=== PATIENT | female | born 1990 | race Caucasian/White ===

== ENCOUNTER 2020-02-18 01:29 | Emergency (ER) | payer SELFPAY ==
[2020-02-18 01:29] VITALS: BP 112/76; PULSE 106; RESP 18; O2SAT 97
--- NOTE | 2020-02-18 01:38 | W.ED.SEIZURE ---
Documented by User: CYDNEY Mcguire 02/18/20 17:31 HPI - Seizure General: Chief Complaint: Seizure Stated Complaint: SEIZURE Time Seen by Provider: 02/18/20 01:38 Source: patient Mode of arrival: ambulatory Limitations: no limitations History of Present Illness: HPI Narrative: Patient comes in today for complaints of seizure. Patient reports binge drinking for the last 4 days and using methamphetamines. Patient reports previous history of a seizure episodes when she stopped drinking before. Patient last drink was this morning. Patient was given Versed by EMS for concerns of seizure activity. Patient appears well. Patient appears in no pain. Review of Systems General: Reports: 10 or more systems reviewed and unremarkable except as noted in History and below Neuro: Reports: seizure-like activity PFSH ED PFSH: Social History Smoking and tobacco status: current every day smoker Physical Exam Const: COMMON NORMALS: no acute distress and patient oriented x3 GENERAL APPEARANCE: cooperative HENMT: COMMON NORMALS: normocephalic, TM's normal bilaterally and Normal external nose present HEAD & SCALP: normal to inspection and normocephalic NOSE: Normal external nose present TYMPANIC MEMBRANE: TM's normal bilaterally MOUTH: Normal oral and palatal mucosa present THROAT: posterior oropharynx normal Eye: GENERAL EYE: appearance normal, both eyes and all related structures Neck/C-Spine: COMMON NORMALS: full ROM Lymph: LYMPHATIC: no lymphadenopathy noted Chest: COMMONS NORMALS: normal inspection of the chest Resp: COMMON NORMALS: normal respiratory effort EFFORT & INSPECTION: Yes able to speak in complete sentences Cardio: COMMON NORMALS: regular rate and regular rhythm RATE: regular rate RHYTHM: regular rhythm GI: COMMON NORMALS: non-tender : COMMON NORMALS: Yes no CVA tenderness BLADDER/KIDNEY EXAM: Yes no CVA tenderness Back/Pelvis: COMMON NORMALS: no CVA tenderness and thoracic and lumbar spine normal to inspection Extremity: COMMON NORMALS: normal to inspection Neuro: COMMON NORMALS: patient oriented x3 and moves all extremities Psych: COMMON NORMALS: mental status grossly normal and cooperative Skin: NARRATIVE SKIN EXAM: Patient has 2 crusted lesions 1 to the dorsal left hand and one to the dorsal left foot. Areas appear as necrotic wound secondary to extravasation. Patient does admit to injecting methamphetamines at those sites. Patient did admit to using methamphetamines prior to the binge drinking of 4 days. Course Vital Signs: Vital signs: Vital Signs Temperature 98.0 F 05/13/20 01:40 Pulse Rate 103 H 02/18/20 03:29 Respiratory Rate 16 02/18/20 03:29 Blood Pressure 108/80 02/18/20 03:29 Pulse Oximetry 96 02/18/20 03:29 MDM - Seizure Lab Data: Labs: Lab Results 02/18/20 02/18/20 02/18/20 Range/Units 02:38 02:38 02:38 WBC (4.0-10.0) 10^3/ uL RBC (4.1-5.3) 10^6/u L Hgb (11.5-15.3) g/dL Hct (37.0-47.0) % MCV (81-99) fL MCH (28.0-34.0) pg MCHC (30.0-36.0) g/dL RDW (12.1-15.1) % Plt Count (130-400) 10^3/c mm MPV (7.4-10.4) fL Neut % (Auto) % Lymph % (Auto) % [place] % (Auto) % Eos % (Auto) % Baso % (Auto) % Neut # (Auto) (1.8-7.7) 10^3/u L Lymph # (Auto) (0.8-4.8) 10^3/u L [place] # (Auto) (0.2-0.9) 10^3/u L Eos # (Auto) (0.0-0.8) 10^3/u L Baso # (Auto) (0.0-0.1) 10^3/u L Nucleated RBC % (a uto) % Nucleated RBCs # /100WBC Sodium (136-145) mmol/L Potassium (3.5-5.1) mmol/L Chloride (98-107) mmol/L Carbon Dioxide (22-29) mmol/L Anion Gap (5-19) BUN (6-20) mg/dL Creatinine (0.5-0.9) mg/dL GFR Calculation (90-130) mL/min Glucose (65-115) mg/dL Calculated Osmolal ity (285-295) mOsm/k g Calcium (8.5-10.5) mg/dL Total Bilirubin (0.15-1.2) mg/dL AST (0-32) U/L ALT (0-33) U/L Alkaline Phosphata se (35-105) IU/L Total Protein (6.6-8.7) g/dL Albumin (3.5-5.2) g/dL Globulin (1.3-4.6) g/dL Urine Color Yellow (Yellow) Urine Appearance Sl hazy (CLEAR) Urine pH 7 (5-7) Ur Specific Gravit y 1.010 (1.005-1.030) Urine Protein Neg (Negative) Urine Glucose (UA) Norm (Normal) Urine Ketones Negative (Negative) Urine Blood 3+ H (Negative) Urine Nitrate Negative (Negative) Urine Bilirubin Neg (NEGATIVE) Urine Urobilinogen Norm (Negative) mg/dL Ur Leukocyte Talia ase Negative (Negative) Urine RBC 25-40 H (0-2) /hpf Urine WBC 0-4 H (0-5) /hpf Ur Squamous Epith Cells 0-4 H (0-5) Urine Bacteria 1+ H (NONE) Urine HCG, Qual Negative (Negative) Urine Opiates Scre en Negative (Negative) ng/mL Ur Barbiturates Sc reen Negative (Negative) ng/mL Ur Phencyclidine S crn Negative (Negative) ng/mL Ur Amphetamines Sc reen Positive H (Negative) ng/mL U Benzodiazepines Scrn Positive H (Negative) ng/mL Urine Cocaine Scre en Negative (Negative) ng/mL U Marijuana (THC) Screen Negative (Negative) ng/mL Ethyl Alcohol (0-10) mg/dL 02/18/20 02/18/20 Range/Units 03:00 03:00 WBC 7.9 (4.0-10.0) 10^3/ uL RBC 4.49 (4.1-5.3) 10^6/u L Hgb 13.1 (11.5-15.3) g/dL Hct 40.0 (37.0-47.0) % MCV 89.1 (81-99) fL MCH 29.2 (28.0-34.0) pg MCHC 32.8 (30.0-36.0) g/dL RDW 13.2 (12.1-15.1) % Plt Count 329 (130-400) 10^3/c mm MPV 9.8 (7.4-10.4) fL Neut % (Auto) 53.7 % Lymph % (Auto) 36.2 % Stonewall % (Auto) 5.3 % Eos % (Auto) 3.9 % Baso % (Auto) 0.4 % Neut # (Auto) 4.3 (1.8-7.7) 10^3/u L Lymph # (Auto) 2.9 (0.8-4.8) 10^3/u L [place] # (Auto) 0.4 (0.2-0.9) 10^3/u L Eos # (Auto) 0.3 (0.0-0.8) 10^3/u L Baso # (Auto) 0.0 (0.0-0.1) 10^3/u L Nucleated RBC % (a uto) 0 % Nucleated RBCs # 0.0 /100WBC Sodium 140 (136-145) mmol/L Potassium 3.7 (3.5-5.1) mmol/L Chloride 102 (98-107) mmol/L Carbon Dioxide 26 (22-29) mmol/L Anion Gap 15.7 (5-19) BUN 7 (6-20) mg/dL Creatinine 0.7 (0.5-0.9) mg/dL GFR Calculation 97.6 (90-130) mL/min Glucose 108 (65-115) mg/dL Calculated Osmolal ity 286 (285-295) mOsm/k g Calcium 8.5 (8.5-10.5) mg/dL Total Bilirubin 0.2 (0.15-1.2) mg/dL AST 18 (0-32) U/L ALT 12 (0-33) U/L Alkaline Phosphata se 83 (35-105) IU/L Total Protein 6.6 (6.6-8.7) g/dL Albumin 4.0 (3.5-5.2) g/dL Globulin 2.6 (1.3-4.6) g/dL Urine Color (Yellow) Urine Appearance (CLEAR) Urine pH (5-7) Ur Specific Gravit y (1.005-1.030) Urine Protein (Negative) Urine Glucose (UA) (Normal) Urine Ketones (Negative) Urine Blood (Negative) Urine Nitrate (Negative) Urine Bilirubin (NEGATIVE) Urine Urobilinogen (Negative) mg/dL Ur Leukocyte Talia ase (Negative) Urine RBC (0-2) /hpf Urine WBC (0-5) /hpf Ur Squamous Epith Cells (0-5) Urine Bacteria (NONE) Urine HCG, Qual (Negative) Urine Opiates Scre en (Negative) ng/mL Ur Barbiturates Sc reen (Negative) ng/mL Ur Phencyclidine S crn (Negative) ng/mL Ur Amphetamines Sc reen (Negative) ng/mL U Benzodiazepines Scrn (Negative) ng/mL Urine Cocaine Scre en (Negative) ng/mL U Marijuana (THC) Screen (Negative) ng/mL Ethyl Alcohol 139 H (0-10) mg/dL Discharge Plan Discharge Patient Disposition: Home, Self-Care Clinical Impression: Substance abuse Alcohol withdrawal Qualifiers: Complication of substance-induced condition: with unspecified complication Qualified Code(s): F10.239 - Alcohol dependence with withdrawal, unspecified Condition: Stable Prescriptions: New chlordiazepoxide HCl 10 mg capsule 10 mg PO Q8H PRN (Reason: alcohol withdrawal) Qty: 14 RF: 0 Discharge Diet: Usual diet Discharge Activity: Increase activity as tolerated Patient Instructions: Alcohol Withdrawal (ED) Activity Restrictions/Additional Instructions: Use medication as needed for alcohol withdrawal. Contact [facility] for further assistance with rehabilitation services. Stop the use of methamphetamines and alcohol. Follow-up with primary care for further treatment as needed. Discharge Date/Time: 02/18/20 03:40 Coding Level of Care Code ED House Painting Instructor for Chg Fwd Exam Comprehensive Documented by User: Martine Cat MD 02/18/20 05:31 HPI - Seizure General: Chief Complaint: Seizure Stated Complaint: SEIZURE Time Seen by Provider: 02/18/20 01:38 PFS ED PFSH: Social History Smoking and tobacco status: current every day smoker Course Vital Signs: Vital signs: Vital Signs Temperature 98.0 F 02/18/20 01:40 Pulse Rate 103 H 02/18/20 03:29 Respiratory Rate 16 02/18/20 03:29 Blood Pressure 108/80 02/18/20 03:29 Pulse Oximetry 96 02/18/20 03:29 MDM - Seizure MDM Narrative: Medical decision making narrative: Saw patient with above midlevel and patient's lab work came back normal except for increased alcohol level and patient test is positive for amphetamines. Patient is well-appearing here and has had no seizures while here. Patient is stable for discharge and is return if worsening. Lab Data: Labs: Lab Results 02/18/20 02/18/20 02/18/20 Range/Units 02:38 02:38 02:38 WBC (4.0-10.0) 10^3/ uL RBC (4.1-5.3) 10^6/u L Hgb (11.5-15.3) g/dL Hct (37.0-47.0) % MCV (81-99) fL MCH (28.0-34.0) pg MCHC (30.0-36.0) g/dL RDW (12.1-15.1) % Plt Count (130-400) 10^3/c mm MPV (7.4-10.4) fL Neut % (Auto) % Lymph % (Auto) % [place] % (Auto) % Eos % (Auto) % Baso % (Auto) % Neut # (Auto) (1.8-7.7) 10^3/u L Lymph # (Auto) (0.8-4.8) 10^3/u L [place] # (Auto) (0.2-0.9) 10^3/u L Eos # (Auto) (0.0-0.8) 10^3/u L Baso # (Auto) (0.0-0.1) 10^3/u L Nucleated RBC % (a uto) % Nucleated RBCs # /100WBC Sodium (136-145) mmol/L Potassium (3.5-5.1) mmol/L Chloride (98-107) mmol/L Carbon Dioxide (22-29) mmol/L Anion Gap (5-19) BUN (6-20) mg/dL Creatinine (0.5-0.9) mg/dL GFR Calculation (90-130) mL/min Glucose (65-115) mg/dL Calculated Osmolal ity (285-295) mOsm/k g Calcium (8.5-10.5) mg/dL Total Bilirubin (0.15-1.2) mg/dL AST (0-32) U/L ALT (0-33) U/L Alkaline Phosphata se (35-105) IU/L Total Protein (6.6-8.7) g/dL Albumin (3.5-5.2) g/dL Globulin (1.3-4.6) g/dL Urine Color Yellow (Yellow) Urine Appearance Sl hazy (CLEAR) Urine pH 7 (5-7) Ur Specific Gravit y 1.010 (1.005-1.030) Urine Protein Neg (Negative) Urine Glucose (UA) Norm (Normal) Urine Ketones Negative (Negative) Urine Blood 3+ H (Negative) Urine Nitrate Negative (Negative) Urine Bilirubin Neg (NEGATIVE) Urine Urobilinogen Norm (Negative) mg/dL Ur Leukocyte Talia ase Negative (Negative) Urine RBC 25-40 H (0-2) /hpf Urine WBC 0-4 H (0-5) /hpf Ur Squamous Epith Cells 0-4 H (0-5) Urine Bacteria 1+ H (NONE) Urine HCG, Qual Negative (Negative) Urine Opiates Scre en Negative (Negative) ng/mL Ur Barbiturates Sc reen Negative (Negative) ng/mL Ur Phencyclidine S crn Negative (Negative) ng/mL Ur Amphetamines Sc reen Positive H (Negative) ng/mL U Benzodiazepines Scrn Positive H (Negative) ng/mL Urine Cocaine Scre en Negative (Negative) ng/mL U Marijuana (THC) Screen Negative (Negative) ng/mL Ethyl Alcohol (0-10) mg/dL 02/18/20 02/18/20 Range/Units 03:00 03:00 WBC 7.9 (4.0-10.0) 10^3/ uL RBC 4.49 (4.1-5.3) 10^6/u L Hgb 13.1 (11.5-15.3) g/dL Hct 40.0 (37.0-47.0) % MCV 89.1 (81-99) fL MCH 29.2 (28.0-34.0) pg MCHC 32.8 (30.0-36.0) g/dL RDW 13.2 (12.1-15.1) % Plt Count 329 (130-400) 10^3/c mm MPV 9.8 (7.4-10.4) fL Neut % (Auto) 53.7 % Lymph % (Auto) 36.2 % [place] % (Auto) 5.3 % Eos % (Auto) 3.9 % Baso % (Auto) 0.4 % Neut # (Auto) 4.3 (1.8-7.7) 10^3/u L Lymph # (Auto) 2.9 (0.8-4.8) 10^3/u L [place] # (Auto) 0.4 (0.2-0.9) 10^3/u L Eos # (Auto) 0.3 (0.0-0.8) 10^3/u L Baso # (Auto) 0.0 (0.0-0.1) 10^3/u L Nucleated RBC % (a uto) 0 % Nucleated RBCs # 0.0 /100WBC Sodium 140 (136-145) mmol/L Potassium 3.7 (3.5-5.1) mmol/L Chloride 102 (98-107) mmol/L Carbon Dioxide 26 (22-29) mmol/L Anion Gap 15.7 (5-19) BUN 7 (6-20) mg/dL Creatinine 0.7 (0.5-0.9) mg/dL GFR Calculation 97.6 (90-130) mL/min Glucose 108 (65-115) mg/dL Calculated Osmolal ity 286 (285-295) mOsm/k g Calcium 8.5 (8.5-10.5) mg/dL Total Bilirubin 0.2 (0.15-1.2) mg/dL AST 18 (0-32) U/L ALT 12 (0-33) U/L Alkaline Phosphata se 83 (35-105) IU/L Total Protein 6.6 (6.6-8.7) g/dL Albumin 4.0 (3.5-5.2) g/dL Globulin 2.6 (1.3-4.6) g/dL Urine Color (Yellow) Urine Appearance (CLEAR) Urine pH (5-7) Ur Specific Gravit y (1.005-1.030) Urine Protein (Negative) Urine Glucose (UA) (Normal) Urine Ketones (Negative) Urine Blood (Negative) Urine Nitrate (Negative) Urine Bilirubin (NEGATIVE) Urine Urobilinogen (Negative) mg/dL Ur Leukocyte Talia ase (Negative) Urine RBC (0-2) /hpf Urine WBC (0-5) /hpf Ur Squamous Epith Cells (0-5) Urine Bacteria (NONE) Urine HCG, Qual (Negative) Urine Opiates Scre en (Negative) ng/mL Ur Barbiturates Sc reen (Negative) ng/mL Ur Phencyclidine S crn (Negative) ng/mL Ur Amphetamines Sc reen (Negative) ng/mL U Benzodiazepines Scrn (Negative) ng/mL Urine Cocaine Scre en (Negative) ng/mL U Marijuana (THC) Screen (Negative) ng/mL Ethyl Alcohol 139 H (0-10) mg/dL Discharge Plan Discharge Patient Disposition: Home, Self-Care Clinical Impression: Substance abuse Alcohol withdrawal Qualifiers: Complication of substance-induced condition: with unspecified complication Qualified Code(s): F10.239 - Alcohol dependence with withdrawal, unspecified Condition: Stable Prescriptions: New chlordiazepoxide HCl 10 mg capsule 10 mg PO Q8H PRN (Reason: alcohol withdrawal) Qty: 14 RF: 0 Discharge Diet: Usual diet Discharge Activity: Increase activity as tolerated Patient Instructions: Alcohol Withdrawal (ED) Activity Restrictions/Additional Instructions: Use medication as needed for alcohol withdrawal. Contact [facility] for further assistance with rehabilitation services. Stop the use of methamphetamines and alcohol. Follow-up with primary care for further treatment as needed. Discharge Date/Time: 02/18/20 03:40 Coding Level of Care Code ED House Painting Instructor for Octavio Salazar Exam Comprehensive
--- NOTE | 2020-02-18 01:39 | CTR_ITS ---
PROCEDURE INFORMATION: Exam: CT Head Without Contrast Exam date and time: 02/18/2020 1:40 AM Age: 29 years old Clinical indication: Other: Seizure TECHNIQUE: Imaging protocol: Computed tomography of the head without contrast. Radiation optimization: All CT scans at this facility use at least one of these dose optimization techniques: automated exposure control; mA and/or kV adjustment per patient size (includes targeted exams where dose is matched to clinical indication); or iterative reconstruction. COMPARISON: No relevant prior studies available. RADIATION DOSE METRICS: Total DLP: 862.42 mGy-cm FINDINGS: Brain: No acute intracranial hemorrhage or mass effect. No definite acute infarct by CT. MRI could be more sensitive/specific for detection, as clinically directed. Ventricles: Ventricle size is normal for age. Bones/joints: No definite acute skull fracture. Sinuses: Included paranasal sinuses are essentially clear. Mastoid air cells: No significant acute finding. CT/CT head wo con* [id number] IMPRESSION: 1. No acute intracranial hemorrhage or mass effect. 2. No definite acute infarct by CT, see above. 3. Other findings discussed above. Radiation Dose CTDIVOL = (mGy): DLP = 862.42 (mGy-cm)
[2020-02-18 01:40] VITALS: BP 111/78; PULSE 110; RESP 16; TEMP 36.7; O2SAT 96; BMI 34.7
[2020-02-18] MEDS: LORazepam 2 mg/mL INJ 1 mL IVP (02:44)
[2020-02-18 03:29] VITALS: BP 108/80; PULSE 103; RESP 16; O2SAT 96
[2020-02-18 04:56] LABS: Alanine Aminotransferase 12 U/L (0-33); Alcohol Level 139 mg/dL (0-10); Alkaline Phosphatase 83 IU/L (35-105); Anion Gap 15.7 (5-19); Aspartate Amino Transferase 18 U/L (0-32); Blood Urea Nitrogen 7 mg/dL (6-20); Calcium 8.5 mg/dL (8.5-10.5); Carbon Dioxide 26 mmol/L (22-29); Chloride 102 mmol/L (98-107); Globulin 2.6 g/dL (1.3-4.6); Glomerular Filtration Rate 97.6 mL/min (90-130); Glucose 108 mg/dL (65-115); Osmolality Calculated 286 mOsm/kg (285-295); Potassium 3.7 mmol/L (3.5-5.1); Sodium 140 mmol/L (136-145); Total Bilirubin 0.2 mg/dL (0.15-1.2); Total Protein 6.6 g/dL (6.6-8.7)
[2020-02-18 05:30] LABS: Add Urine Microscopic? YES; Bilirubin Urine Neg (NEGATIVE); Blood Urine 3+ (Negative); Glucose Urine UA Norm (Normal); Ketones Urine Negative (Negative); Leukocyte Esterase Urine Negative (Negative); Nitrate Urine Negative (Negative); Protein Urine Neg (Negative); Urine Appearance SL Hazy (CLEAR); Urine Color Yellow (Yellow); Urobilinogen Urine Norm (Negative); pH Urine 7 (5-7)
[2020-02-18 05:31] LABS: Add Urine Culture? Yes; Amphetamines Screen Urine Positive (Negative); Bacteria Urine 1+; Barbiturates Screen Urine Negative (Negative); Benzodiazepines Screen Urine Positive (Negative); Cocaine Screen Urine Negative (Negative); PCP Screen Urine Negative (Negative); RBC Urine 25-40 /hpf (0-2); Squamous Epithelial Cell Urine 0-4 (0-5); THC Screen Urine Negative (Negative); WBC Urine 0-4 /hpf (0-5)
[2020-02-18 05:34] LABS: Basophils % 0.4 %; Eosinophils # 0.3 10^3/uL (0.0-0.8); Eosinophils % 3.9 %; Hemoglobin 13.1 g/dL (11.5-15.3); Lymphocytes # 2.9 10^3/uL (0.8-4.8); Lymphocytes % 36.2 %; Mean Corpuscular HGB Conc 32.8 g/dL (30.0-36.0); Mean Corpuscular Hemoglobin 29.2 pg (28.0-34.0); Mean Corpuscular Volume 89.1 fL (81-99); Mean Platelet Volume 9.8 fL (7.4-10.4); Monocytes # 0.4 10^3/uL (0.2-0.9); Monocytes % 5.3 %; Neutrophils # 4.3 10^3/uL (1.8-7.7); Neutrophils % 53.7 %; Nucleated Red Blood Cells % 0 %; Platelet Count 329 10^3/cmm (130-400); Red Blood Count 4.49 10^6/uL (4.1-5.3); Red Cell Distribution Width 13.2 % (12.1-15.1); White Blood Count 7.9 10^3/uL (4.0-10.0)
[2020-02-18 06:02] LABS: Opiate Screen Urine Negative (Negative)
--- NOTE | 2020-02-19 11:23 | DCPLANNER ---
project manager/design manager had message to speak with patient about services at [facility] and to give patient the phone number to [facility]. project manager/design manager called , unable to speak with patient at this time, a voicemail was left for patient to return caser up phone call.
== END 2020-02-18 03:40 | disposition home or self-care (01) ==
PROVIDERS: Emergency Provider Nurse Practitioner Family
DX: F10.239 Alcohol dependence with withdrawal, unspecified (principal); Y90.6 Blood alcohol level of 120-199 mg/100 ml; F17.210 Nicotine dependence, cigarettes, uncomplicated
CPT/HCPCS: 12345; 70450; 80053; 80306; 80307; 81001; 81025; 85025; 87086; 96374; 96375; 99282; 99283; J2060

== ENCOUNTER 2020-02-21 13:20 | Inpatient (IN) | payer SELFPAY ==
[2020-02-21] VITALS (11 sets, daily range): BP systolic 94–139; BP diastolic 67–104; PULSE 94–119; RESP 14–26; TEMP 36.2; O2SAT 88–98; BMI 33.9
--- NOTE | 2020-02-21 14:03 | ED_ITS ---
HPI - General Adult General: Chief complaint: General Medical Stated complaint: seizure Time Seen by Provider: 02/21/20 13:41 History of Present Illness: HPI narrative: 29-year-old female presents emergency room complaining of a seizure. She is a heavy drinker states she drinks 1/5 a day she states that she had a seizure about 2 hours ago despite taking her Librium regularly. She was seen here 3 days ago and given Librium stating that she had had DTs and withdrawal in the past. She did continue to drink and her last drink was last night at 1 AM. She is not on any antiseizure medications. Patient is wanting to have a refill of Librium and the dose i ncreased she states she can do this at home she just needs a higher dose and a larger quantity of the Librium. Onset (ago): hour(s) Associated symptoms: Reports other (Tremors); Deny chest pain, dyspnea, malaise, nausea, rash or vomiting Treatments prior to arrival: other (Patient took Librium 3 to 4 hours ago) Review of Systems Const: Denies: fever(s), chills, body aches, change in appetite, fatigue or malaise ENMT: Denies: throat pain, ear or mastoid pain, nasal discharge or nasal congestion Card: Denies: chest pain, edema, dyspnea on exertion or orthopnea Resp: Denies: dyspnea, productive cough or non-productive cough GI: Denies: abdominal pain, nausea, vomiting, hematemesis, coffee ground emesis, diarrhea, constipation, bloating, hematochezia or melena : Denies: flank pain, difficulty voiding, dysuria, urinary frequency or urinary urgency Skin/Breast: Denies: rash or pruritus PFSH ED PFSH: Medical History Alcohol withdrawal Alcoholism Hx LEEP (loop electrosurgical excision procedure), cervix, Substance abuse Surgical History History of bladder surgery Hx of tubal ligation Family History Other Cancer Social History Smoking and tobacco status: current every day smoker Alcohol intake: current Alcohol intake frequency: 3 or more drinks per day Alcohol type: hard liquor Alcohol use comment: Last drank at 11 AM last night Desire information about alcohol rehabilitation?: Yes Counseling given: Yes Substance/Drug Use: current Substance/Drug use type: Amphetamines and IV Drugs Female Reproductive History: Date of last menstrual period: 02/06/20 Physical Exam Const: COMMON NORMALS: no acute distress GENERAL APPEARANCE: cooperative and comfortable ORIENTATION/CONSCIOUSNESS: Yes awake, Yes oriented to person, Yes oriented to place and Yes oriented to time HENMT: COMMON NORMALS: normocephalic, atraumatic, hearing grossly normal bilaterally, external ears normal, EAC's normal, TM's normal bilaterally, Normal nasal mucous membranes and turbinates present, moist oral mucous membranes and oropharynx normal HEAD & SCALP: normocephalic and atraumatic NOSE: Normal nasal mucous membranes and turbinates present EXTERNAL EAR: Yes external ears normal EXTERNAL AUDITORY CANAL: EAC's normal TYMPANIC MEMBRANE: TM's normal bilaterally Eye: COMMON NORMALS: Equal, round and reactive pupils present, EOMs intact bilaterally, conjunctivae normal and no scleral icterus CONJUNCTIVA: Yes conjunctivae normal PUPIL: Yes Equal, round and reactive pupils present Neck/C-Spine: COMMON NORMALS: full ROM, no lymphadenopathy, supple and no JVD Lymph: LYMPHATIC: no lymphadenopathy noted and no lymphedema noted Resp: COMMON NORMALS: normal respiratory effort, No retractions, No use of accessory muscles and clear to auscultation bilaterally AUSCULTATION: clear to auscultation bilaterally Cardio: COMMON NORMALS: no JVD, regular rate, regular rhythm and No murmurs present (Cardio) RATE: regular rate RHYTHM: regular rhythm GI: COMMON NORMALS: Soft to palpation and No hepatosplenomegaly present AUSCULTATION: Yes normoactive bowel sounds PALPATION: Yes Soft to palpation, No Tenderness to palpation present (GI), No Guarding due to palpation present (GI) and Yes No hepatosplenomegaly present Extremity: COMMON NORMALS: normal to inspection, capillary refill normal, no clubbing, cyanosis or edema, no calf tenderness and no pedal edema Neuro: SENSORIUM/ORIENTATION: Yes oriented to person, Yes oriented to place and Yes oriented to time Skin: COMMON NORMALS: no rashes or lesions noted GENERAL SKIN EXAM: no rashes or lesions noted Course Vital Signs: Vital signs: Vital Signs Temperature 98.0 F 02/23/20 09:14 Pulse Rate 111 H 02/23/20 09:14 Respiratory Rate 18 02/23/20 09:14 Blood Pressure 127/87 02/23/20 09:14 Pulse Oximetry 98 02/23/20 09:14 MDM - General Adult MDM Narrative: Medical decision making narrative: Given report of seizures with withdrawal per the patient observation. I am little skeptical of the report of seizures as her CPK is normal. Reviewed with Dr. Tovar. Lab Data: Labs: Lab Results 02/21/20 02/21/20 02/21/20 Range/Units 14:13 14:13 14:13 WBC (4.0-10.0) 10^3/ uL RBC (4.1-5.3) 10^6/u L Hgb (11.5-15.3) g/dL Hct (37.0-47.0) % MCV (81-99) fL MCH (28.0-34.0) pg MCHC (30.0-36.0) g/dL RDW (12.1-15.1) % Plt Count (130-400) 10^3/c mm MPV (7.4-10.4) fL Neut % (Auto) % Lymph % (Auto) % [place] % (Auto) % Eos % (Auto) % Baso % (Auto) % Neut # (Auto) (1.8-7.7) 10^3/u L Lymph # (Auto) (0.8-4.8) 10^3/u L [place] # (Auto) (0.2-0.9) 10^3/u L Eos # (Auto) (0.0-0.8) 10^3/u L Baso # (Auto) (0.0-0.1) 10^3/u L Nucleated RBC % (a uto) % Nucleated RBCs # /100WBC PT (10.5-13.3) SECO NDS INR (0.8-1.2) APTT (23.9-36.7) SECO NDS Sodium (136-145) mmol/L Potassium (3.5-5.1) mmol/L Chloride (98-107) mmol/L Carbon Dioxide (22-29) mmol/L Anion Gap (5-19) BUN (6-20) mg/dL Creatinine (0.5-0.9) mg/dL GFR Calculation (90-130) mL/min Glucose (65-115) mg/dL Calculated Osmolal ity (285-295) mOsm/k g Lactate (0.5-2.2) mmol/L Calcium (8.5-10.5) mg/dL Magnesium (1.7-2.3) mg/dL Total Bilirubin (0.15-1.2) mg/dL AST (0-32) U/L ALT (0-33) U/L Alkaline Phosphata se (35-105) IU/L Creatine Kinase (26-192) U/L Total Protein (6.6-8.7) g/dL Albumin (3.5-5.2) g/dL Globulin (1.3-4.6) g/dL Lipase (13-60) U/L TSH (0.27-4.20) uIU/ mL HCG, Qual Negative (Negative) Urine Color Yellow (Yellow) Urine Appearance Sl cloudy A (CLEAR) Urine pH 9 H (5-7) Ur Specific Gravit y 1.010 (1.005-1.030) Urine Protein Trace (Negative) Urine Glucose (UA) Norm (Normal) Urine Ketones Negative (Negative) Urine Blood 3+ H (Negative) Urine Nitrate Negative (Negative) Urine Bilirubin Neg (NEGATIVE) Prot Sulfosalicyli c Acd Negative (Negative) Urine Urobilinogen Norm (Negative) mg/dL Ur Leukocyte Talia ase 1+ H (Negative) Urine RBC 5-10 H (0-2) /hpf Urine WBC 15-25 H (0-5) /hpf Ur Squamous Epith Cells 40-55 H (0-5) Ur Transition Epit h Cell 5-10 /hpf Urine Bacteria 2+ H (NONE) Urine Opiates Scre en Negative (Negative) ng/mL Ur Barbiturates Sc reen Negative (Negative) ng/mL Ur Phencyclidine S crn Negative (Negative) ng/mL Ur Amphetamines Sc reen Negative (Negative) ng/mL U Benzodiazepines Scrn Positive H (Negative) ng/mL Urine Cocaine Scre en Negative (Negative) ng/mL U Marijuana (THC) Screen Negative (Negative) ng/mL Ethyl Alcohol (0-10) mg/dL Hepatitis A IgM Ab (Nonreactive) Hep Bs Antigen (Nonreactive) Hep B Core IgM Ab (Nonreactive) Hepatitis C Antibo dy (Nonreactive) HIV 1&2 Ab & HIV 1 Ag (Non-Reactiv) HIV 1&2 Antibody (Non-Reactiv) 02/21/20 02/21/20 02/21/20 Range/Units 14:18 14:18 14:18 WBC 10.3 H (4.0-10.0) 10^3/ uL RBC 4.95 (4.1-5.3) 10^6/u L Hgb 14.0 (11.5-15.3) g/dL Hct 43.2 (37.0-47.0) % MCV 87.3 (81-99) fL MCH 28.3 (28.0-34.0) pg MCHC 32.4 (30.0-36.0) g/dL RDW 13.0 (12.1-15.1) % Plt Count 311 (130-400) 10^3/c mm MPV 9.5 (7.4-10.4) fL Neut % (Auto) 66.7 % Lymph % (Auto) 23.4 % [place] % (Auto) 6.4 % Eos % (Auto) 2.7 % Baso % (Auto) 0.2 % Neut # (Auto) 6.9 (1.8-7.7) 10^3/u L Lymph # (Auto) 2.4 (0.8-4.8) 10^3/u L [place] # (Auto) 0.7 (0.2-0.9) 10^3/u L Eos # (Auto) 0.3 (0.0-0.8) 10^3/u L Baso # (Auto) 0.0 (0.0-0.1) 10^3/u L Nucleated RBC % (a uto) 0 % Nucleated RBCs # 0.0 /100WBC PT 12.40 (10.5-13.3) SECO NDS INR 0.90 (0.8-1.2) APTT 24.8 (23.9-36.7) SECO NDS Sodium 139 (136-145) mmol/L Potassium 4.1 (3.5-5.1) mmol/L Chloride 100 (98-107) mmol/L Carbon Dioxide 27 (22-29) mmol/L Anion Gap 16.1 (5-19) BUN 6 (6-20) mg/dL Creatinine 0.6 (0.5-0.9) mg/dL GFR Calculation 116.6 (90-130) mL/min Glucose 96 (65-115) mg/dL Calculated Osmolal ity 284 L (285-295) mOsm/k g Lactate (0.5-2.2) mmol/L Calcium 9.7 (8.5-10.5) mg/dL Magnesium (1.7-2.3) mg/dL Total Bilirubin 0.2 (0.15-1.2) mg/dL AST 20 (0-32) U/L ALT 14 (0-33) U/L Alkaline Phosphata se 93 (35-105) IU/L Creatine Kinase 86 (26-192) U/L Total Protein 7.6 (6.6-8.7) g/dL Albumin 4.3 (3.5-5.2) g/dL Globulin 3.3 (1.3-4.6) g/dL Lipase 7 L (13-60) U/L TSH (0.27-4.20) uIU/ mL HCG, Qual (Negative) Urine Color (Yellow) Urine Appearance (CLEAR) Urine pH (5-7) Ur Specific Gravit y (1.005-1.030) Urine Protein (Negative) Urine Glucose (UA) (Normal) Urine Ketones (Negative) Urine Blood (Negative) Urine Nitrate (Negative) Urine Bilirubin (NEGATIVE) Prot Sulfosalicyli c Acd (Negative) Urine Urobilinogen (Negative) mg/dL Ur Leukocyte Talia ase (Negative) Urine RBC (0-2) /hpf Urine WBC (0-5) /hpf Ur Squamous Epith Cells (0-5) Ur Transition Epit h Cell /hpf Urine Bacteria (NONE) Urine Opiates Scre en (Negative) ng/mL Ur Barbiturates Sc reen (Negative) ng/mL Ur Phencyclidine S crn (Negative) ng/mL Ur Amphetamines Sc reen (Negative) ng/mL U Benzodiazepines Scrn (Negative) ng/mL Urine Cocaine Scre en (Negative) ng/mL U Marijuana (THC) Screen (Negative) ng/mL Ethyl Alcohol < 10 (0-10) mg/dL Hepatitis A IgM Ab (Nonreactive) Hep Bs Antigen (Nonreactive) Hep B Core IgM Ab (Nonreactive) Hepatitis C Antibo dy (Nonreactive) HIV 1&2 Ab & HIV 1 Ag (Non-Reactiv) HIV 1&2 Antibody (Non-Reactiv) 02/21/20 02/21/20 02/21/20 Range/Units 14:18 14:18 14:18 WBC (4.0-10.0) 10^3/ uL RBC (4.1-5.3) 10^6/u L Hgb (11.5-15.3) g/dL Hct (37.0-47.0) % MCV (81-99) fL MCH (28.0-34.0) pg MCHC (30.0-36.0) g/dL RDW (12.1-15.1) % Plt Count (130-400) 10^3/c mm MPV (7.4-10.4) fL Neut % (Auto) % Lymph % (Auto) % [place] % (Auto) % Eos % (Auto) % Baso % (Auto) % Neut # (Auto) (1.8-7.7) 10^3/u L Lymph # (Auto) (0.8-4.8) 10^3/u L [place] # (Auto) (0.2-0.9) 10^3/u L Eos # (Auto) (0.0-0.8) 10^3/u L Baso # (Auto) (0.0-0.1) 10^3/u L Nucleated RBC % (a uto) % Nucleated RBCs # /100WBC PT (10.5-13.3) SECO NDS INR (0.8-1.2) APTT (23.9-36.7) SECO NDS Sodium (136-145) mmol/L Potassium (3.5-5.1) mmol/L Chloride (98-107) mmol/L Carbon Dioxide (22-29) mmol/L Anion Gap (5-19) BUN (6-20) mg/dL Creatinine (0.5-0.9) mg/dL GFR Calculation (90-130) mL/min Glucose (65-115) mg/dL Calculated Osmolal ity (285-295) mOsm/k g Lactate 1.2 (0.5-2.2) mmol/L Calcium (8.5-10.5) mg/dL Magnesium 2.2 (1.7-2.3) mg/dL Total Bilirubin (0.15-1.2) mg/dL AST (0-32) U/L ALT (0-33) U/L Alkaline Phosphata se (35-105) IU/L Creatine Kinase (26-192) U/L Total Protein (6.6-8.7) g/dL Albumin (3.5-5.2) g/dL Globulin (1.3-4.6) g/dL Lipase (13-60) U/L TSH 1.59 (0.27-4.20) uIU/ mL HCG, Qual (Negative) Urine Color (Yellow) Urine Appearance (CLEAR) Urine pH (5-7) Ur Specific Gravit y (1.005-1.030) Urine Protein (Negative) Urine Glucose (UA) (Normal) Urine Ketones (Negative) Urine Blood (Negative) Urine Nitrate (Negative) Urine Bilirubin (NEGATIVE) Prot Sulfosalicyli c Acd (Negative) Urine Urobilinogen (Negative) mg/dL Ur Leukocyte Talia ase (Negative) Urine RBC (0-2) /hpf Urine WBC (0-5) /hpf Ur Squamous Epith Cells (0-5) Ur Transition Epit h Cell /hpf Urine Bacteria (NONE) Urine Opiates Scre en (Negative) ng/mL Ur Barbiturates Sc reen (Negative) ng/mL Ur Phencyclidine S crn (Negative) ng/mL Ur Amphetamines Sc reen (Negative) ng/mL U Benzodiazepines Scrn (Negative) ng/mL Urine Cocaine Scre en (Negative) ng/mL U Marijuana (THC) Screen (Negative) ng/mL Ethyl Alcohol (0-10) mg/dL Hepatitis A IgM Ab Non-reactive (Nonreactive) Hep Bs Antigen Non-reactive (Nonreactive) Hep B Core IgM Ab Non-reactive (Nonreactive) Hepatitis C Antibo dy Non-reactive (Nonreactive) HIV 1&2 Ab & HIV 1 Ag (Non-Reactiv) HIV 1&2 Antibody (Non-Reactiv) 02/21/20 Range/Units 14:18 WBC (4.0-10.0) 10^3/ uL RBC (4.1-5.3) 10^6/u L Hgb (11.5-15.3) g/dL Hct (37.0-47.0) % MCV (81-99) fL MCH (28.0-34.0) pg MCHC (30.0-36.0) g/dL RDW (12.1-15.1) % Plt Count (130-400) 10^3/c mm MPV (7.4-10.4) fL Neut % (Auto) % Lymph % (Auto) % [place] % (Auto) % Eos % (Auto) % Baso % (Auto) % Neut # (Auto) (1.8-7.7) 10^3/u L Lymph # (Auto) (0.8-4.8) 10^3/u L [place] # (Auto) (0.2-0.9) 10^3/u L Eos # (Auto) (0.0-0.8) 10^3/u L Baso # (Auto) (0.0-0.1) 10^3/u L Nucleated RBC % (a uto) % Nucleated RBCs # /100WBC PT (10.5-13.3) SECO NDS INR (0.8-1.2) APTT (23.9-36.7) SECO NDS Sodium (136-145) mmol/L Potassium (3.5-5.1) mmol/L Chloride (98-107) mmol/L Carbon Dioxide (22-29) mmol/L Anion Gap (5-19) BUN (6-20) mg/dL Creatinine (0.5-0.9) mg/dL GFR Calculation (90-130) mL/min Glucose (65-115) mg/dL Calculated Osmolal ity (285-295) mOsm/k g Lactate (0.5-2.2) mmol/L Calcium (8.5-10.5) mg/dL Magnesium (1.7-2.3) mg/dL Total Bilirubin (0.15-1.2) mg/dL AST (0-32) U/L ALT (0-33) U/L Alkaline Phosphata se (35-105) IU/L Creatine Kinase (26-192) U/L Total Protein (6.6-8.7) g/dL Albumin (3.5-5.2) g/dL Globulin (1.3-4.6) g/dL Lipase (13-60) U/L TSH (0.27-4.20) uIU/ mL HCG, Qual (Negative) Urine Color (Yellow) Urine Appearance (CLEAR) Urine pH (5-7) Ur Specific Gravit y (1.005-1.030) Urine Protein (Negative) Urine Glucose (UA) (Normal) Urine Ketones (Negative) Urine Blood (Negative) Urine Nitrate (Negative) Urine Bilirubin (NEGATIVE) Prot Sulfosalicyli c Acd (Negative) Urine Urobilinogen (Negative) mg/dL Ur Leukocyte Talia ase (Negative) Urine RBC (0-2) /hpf Urine WBC (0-5) /hpf Ur Squamous Epith Cells (0-5) Ur Transition Epit h Cell /hpf Urine Bacteria (NONE) Urine Opiates Scre en (Negative) ng/mL Ur Barbiturates Sc reen (Negative) ng/mL Ur Phencyclidine S crn (Negative) ng/mL Ur Amphetamines Sc reen (Negative) ng/mL U Benzodiazepines Scrn (Negative) ng/mL Urine Cocaine Scre en (Negative) ng/mL U Marijuana (THC) Screen (Negative) ng/mL Ethyl Alcohol (0-10) mg/dL Hepatitis A IgM Ab (Nonreactive) Hep Bs Antigen (Nonreactive) Hep B Core IgM Ab (Nonreactive) Hepatitis C Antibo dy (Nonreactive) HIV 1&2 Ab & HIV 1 Ag Non-reactive (Non-Reactiv) HIV 1&2 Antibody Non-reactive (Non-Reactiv) Discharge Plan Discharge Patient Disposition: Admitted As Inpatient Admit Provider: Jose Aguilera Clinical Impression: Alcoholism, chronic, Alcohol withdrawal, Seizures Discharge Orders: Discharge Order (Routine); Ordered 02/23/20 Ordered By: Rob Rogers Interventions: ED Discharge Assessment Last Done: 02/21/20 18:10 ED Charges Last Done: 02/21/20 18:10 Discharge Date/Time: 02/21/20 18:37 Coding Level of Care Code ED Warranty Manager for Drewg Fwd Exam Comprehensive
--- NOTE | 2020-02-21 14:16 | PC.NURSE ---
Assisted patient to and from room to restroom. Lab at bedside.
[2020-02-21 14:35] LABS: Amphetamines Screen Urine Negative (Negative); Barbiturates Screen Urine Negative (Negative); Benzodiazepines Screen Urine Positive (Negative); Cocaine Screen Urine Negative (Negative); Opiate Screen Urine Negative (Negative); PCP Screen Urine Negative (Negative); THC Screen Urine Negative (Negative)
[2020-02-21 14:47] LABS: Basophils % 0.2 %; Eosinophils # 0.3 10^3/uL (0.0-0.8); Eosinophils % 2.7 %; Hematocrit 43.2 % (37.0-47.0); Lymphocytes # 2.4 10^3/uL (0.8-4.8); Lymphocytes % 23.4 %; Mean Corpuscular HGB Conc 32.4 g/dL (30.0-36.0); Mean Corpuscular Hemoglobin 28.3 pg (28.0-34.0); Mean Corpuscular Volume 87.3 fL (81-99); Mean Platelet Volume 9.5 fL (7.4-10.4); Monocytes # 0.7 10^3/uL (0.2-0.9); Monocytes % 6.4 %; Neutrophils # 6.9 10^3/uL (1.8-7.7); Neutrophils % 66.7 %; Nucleated Red Blood Cells % 0 %; Platelet Count 311 10^3/cmm (130-400); Red Blood Count 4.95 10^6/uL (4.1-5.3); White Blood Count 10.3 10^3/uL (4.0-10.0)
[2020-02-21 14:47] LABS: Add Urine Microscopic? YES; Bilirubin Urine Neg (NEGATIVE); Blood Urine 3+ (Negative); Glucose Urine UA Norm (Normal); Ketones Urine Negative (Negative); Leukocyte Esterase Urine 1+ (Negative); Nitrate Urine Negative (Negative); Protein Urine Trace (Negative); Sulfosalicylic Acid Urine Negative (Negative); Urine Color Yellow (Yellow); Urobilinogen Urine Norm (Negative); pH Urine 9 (5-7)
[2020-02-21 14:56] LABS: Partial Thromboplastin Time 24.8 SECONDS (23.9-36.7)
[2020-02-21 15:00] LABS: Alanine Aminotransferase 14 U/L (0-33); Albumin Level 4.3 g/dL (3.5-5.2); Alkaline Phosphatase 93 IU/L (35-105); Anion Gap 16.1 (5-19); Aspartate Amino Transferase 20 U/L (0-32); Blood Urea Nitrogen 6 mg/dL (6-20); Calcium 9.7 mg/dL (8.5-10.5); Carbon Dioxide 27 mmol/L (22-29); Chloride 100 mmol/L (98-107); Creatine Phosphokinase 86 U/L (26-192); Globulin 3.3 g/dL (1.3-4.6); Glomerular Filtration Rate 116.6 mL/min (90-130); Glucose 96 mg/dL (65-115); Lipase 7 U/L (13-60); Osmolality Calculated 284 mOsm/kg (285-295); Potassium 4.1 mmol/L (3.5-5.1); Sodium 139 mmol/L (136-145); Total Bilirubin 0.2 mg/dL (0.15-1.2); Total Protein 7.6 g/dL (6.6-8.7)
[2020-02-21 15:01] LABS: Alcohol Level < 10 mg/dL (0-10); Lactate (Lactic Acid level) 1.2 mmol/L (0.5-2.2)
[2020-02-21 15:17] LABS: Bacteria Urine 2+; Squamous Epithelial Cell Urine 40-55 (0-5); WBC Urine 15-25 /hpf (0-5)
[2020-02-21 15:18] LABS: Add Urine Culture? No
[2020-02-21 15:54] LABS: Add On to Lab Order(s) Added
--- NOTE | 2020-02-21 15:57 | PM.HP ---
Providers/Chief Complaint Chief Complaint: seizure History of Present Illness Meredith Guzman is a 29 year old female that comes into the emergency department reporting she has had a seizure. She reports this occurred today and her mother told her about it. She denies any loss of bowel or bladder function. She reports 3 days ago she had 1 as well. She states these always happen when she withdraws from alcohol and drugs. She denies any underlying chronic seizure disorder for which she takes medication for. She states Librium can help. She denies any fever, headache. She has had some diarrhea nausea and vomiting. She reports her last alcohol intake was last night. She denies any blood in her stool, black or tarry stools, or hematemesis. She states her last methamphetamine use IV was 2 to 3 days ago. I asked her if there was any when I could visit with her regarding her seizure who witnessed this, and she reports her mother is disabled and there is not really a way to contact her. She denies any homicidal or suicidal ideation. Review of Systems General: Reports: 10 or more systems reviewed and unremarkable except in HPI and below Const: Denies: fever(s) or chills Eyes: Denies: change in vision ENMT: Denies: throat pain Card: Denies: chest pain Resp: Denies: dyspnea GI: Reports: nausea, vomiting and diarrhea : Denies: flank pain Musc: Denies: neck pain Skin/Breast: Denies: rash Psych: Reports: anxiety and depression Endo: Denies: polyuria Jarrell/Lymph: Denies: easy bruising All/Imm: Denies: urticaria Medications/Allergies Home Medications Medication Instructions Recorded Confirmed Last Taken Type chlordiazepoxide HCl 10 mg PO Q8H PRN #14 cap 02/18/20 02/21/20 02/21/20 Rx ibuprofen 400 mg PO PRN 02/21/20 02/21/20 02/21/20 History multivitamin [Multiple Vitamins] 1 tab PO DAILY 02/21/20 02/21/20 02/20/20 History olanzapine 10 mg PO DAILY 02/21/20 02/21/20 02/20/20 History Allergies Allergy/AdvReac Type Severity Reaction Status Date / Time No Known Allergies Allergy Verified 02/21/20 13:28 PFSH Acute PFSH: Medical History (Updated 02/21/20 @ 16:02 by Jose Aguilera MD) Alcohol withdrawal Alcoholism Hx LEEP (loop electrosurgical excision procedure), cervix, Substance abuse Surgical History (Updated 02/21/20 @ 15:59 by Jose Aguilera MD) History of bladder surgery Hx of tubal ligation Family History (Updated 02/21/20 @ 16:00 by Jose Aguilera MD) Other Cancer Social History (Updated 02/21/20 @ 16:00 by Jose Aguilera MD) Smoking and tobacco status: current every day smoker Alcohol intake: current Alcohol intake frequency: 3 or more drinks per day Alcohol type: hard liquor Alcohol use comment: Last drank at 11 AM last night Desire information about alcohol rehabilitation?: Yes Counseling given: Yes Substance/Drug Use: current Substance/Drug use type: Amphetamines and IV Drugs Female Reproductive History: Date of last menstrual period: 02/06/20 Vitals/I&O/Wt Last Vital Signs Temp 97.1 F L 02/21/20 13:29 Pulse 105 H 02/21/20 13:29 Resp 14 02/21/20 13:29 BP 133/89 02/21/20 13:29 Pulse Ox 97 02/21/20 13:29 Weight last 48 hrs Weight 95.254 kg Physical Exam Narrative: EXAM NARRATIVE: General exam demonstrates an anxious female, with occasional tic Skin demonstrates some skin breakdown at injection sites but no overt drainage or cellulitis HEENT: Pupils equally round. Oropharynx clear. Neck is supple no lymphadenopathy or thyromegaly Cardiovascular slight tachycardia, no murmur Lungs clear no wheezing or crackles Abdomen is soft nontender with positive bowel sounds. No obvious organomegaly was deferred Extremities no cyanosis clubbing or edema Neuro no obvious focal deficits Data : 02/21/20 14:18 02/21/20 14:18 Other data: Recent CT head negative. Recent urine test negative. Urine appears contaminated. Alcohol level less than 10. Urine drug screen positive for benzodiazepines. A&P Assessment and plan (1) Alcohol withdrawal: Blood pressure is elevated. Heart rate is elevated. With history of seizure this is concerning for alcohol withdrawal. Thiamine, folate, multivitamin Admission to ICU CIWA protocol, Ativan, Librium Check TSH Hydration Status: Acute Qualifiers: Complication of substance-induced condition: with unspecified complication Qualified Code(s): F10.239 - Alcohol dependence with withdrawal, unspecified (2) Alcoholism: Discussed abstinence Status: Acute (3) Substance abuse: Discussed abstinence Will offer rehabilitation programs She denies any suicidal or homicidal ideation Check hepatitis panel, HIV Status: Acute (4) Seizure: Reported, but hard to confirm. Given an infusion of Keppra in the emergency department I do not think this needs to be continued at this point. Treat active withdrawal and monitor closely. Seizure and fall precautions Status: Acute Additional A&P Information Full code Low risk for DVT Check repeat urine test Attestations Medical Necessity Statement*: Will need greater than 2 midnight stay for treatment of alcohol withdrawal with possible seizure Time Spent in Patient Care: Greater than 35 minutes Coding Level of Care Code Acute Rest Room Attendant for Octavio Salazar Diagnoses Alcohol withdrawal F10.239 Complication of substance-induced condition: with unspecified complication Alcoholism F10.20 Substance abuse F19.10 Seizure R56.9
[2020-02-21 16:12] LABS: HCG Qualitative Urine. Negative (Negative)
[2020-02-21 16:24] LABS: Thyroid Stimulating Hormone 1.59 uIU/mL (0.27-4.20)
[2020-02-21 16:40] LABS: HIV 1 & 2 Antibody Non-Reactive (Non-Reactiv); HIV 1 & 2 Antigen Non-Reactive (Non-Reactiv)
[2020-02-21 16:45] LABS: Hepatitis A Antibody IgM Non-Reactive (Nonreactive); Hepatitis B Core IgM Non-Reactive (Nonreactive); Hepatitis B Surface Antigen Non-Reactive (Nonreactive); Hepatitis C Virus Antibody Non-Reactive (Nonreactive); Magnesium 2.2 mg/dL (1.7-2.3)
[2020-02-21] MEDS: LORazepam 2 mg/mL INJ 1 mL IVP (17:06)
[2020-02-21] MEDS: sodium chloride 0.9% 1,000 ML 999 ML IV (17:28)
[2020-02-21] MEDS: LORazepam 2 mg Tablet PO (20:00)
[2020-02-21] MEDS: acetaminophen 325 mg Tablet 650 MG PO (20:01)
[2020-02-22] VITALS (12 sets, daily range): BP systolic 104–134; BP diastolic 67–86; PULSE 84–100; RESP 13–19; TEMP 36.7–37.1; O2SAT 92–99
[2020-02-22] MEDS: sodium chloride 0.9% 1,000 ML 150 ML IV ×2 (02:10→10:10)
[2020-02-22 05:31] LABS: Basophils % 0.4 %; Eosinophils # 0.3 10^3/uL (0.0-0.8); Eosinophils % 4.3 %; Hematocrit 38.8 % (37.0-47.0); Hemoglobin 12.5 g/dL (11.5-15.3); Lymphocytes # 2.4 10^3/uL (0.8-4.8); Lymphocytes % 34.8 %; Mean Corpuscular HGB Conc 32.2 g/dL (30.0-36.0); Mean Corpuscular Hemoglobin 28.3 pg (28.0-34.0); Mean Platelet Volume 9.7 fL (7.4-10.4); Monocytes # 0.4 10^3/uL (0.2-0.9); Monocytes % 6.5 %; Neutrophils # 3.7 10^3/uL (1.8-7.7); Neutrophils % 53.6 %; Nucleated Red Blood Cells % 0 %; Platelet Count 271 10^3/cmm (130-400); Red Blood Count 4.41 10^6/uL (4.1-5.3); Red Cell Distribution Width 13.1 % (12.1-15.1); White Blood Count 6.8 10^3/uL (4.0-10.0)
[2020-02-22 05:46] LABS: Alanine Aminotransferase 10 U/L (0-33); Albumin Level 3.6 g/dL (3.5-5.2); Alkaline Phosphatase 80 IU/L (35-105); Anion Gap 14.1 (5-19); Aspartate Amino Transferase 18 U/L (0-32); Blood Urea Nitrogen 7 mg/dL (6-20); Calcium 9.1 mg/dL (8.5-10.5); Carbon Dioxide 25 mmol/L (22-29); Chloride 106 mmol/L (98-107); Globulin 2.7 g/dL (1.3-4.6); Glomerular Filtration Rate 116.6 mL/min (90-130); Glucose 94 mg/dL (65-115); Magnesium 2.2 mg/dL (1.7-2.3); Osmolality Calculated 288 mOsm/kg (285-295); Potassium 4.1 mmol/L (3.5-5.1); Sodium 141 mmol/L (136-145); Total Bilirubin 0.2 mg/dL (0.15-1.2); Total Protein 6.3 g/dL (6.6-8.7)
[2020-02-22] MEDS: thiamine 100 mg Tablet PO (08:54)
[2020-02-22] MEDS: multivitamin therapeutic Tablet 1 TAB PO (08:54)
[2020-02-22] MEDS: folic acid 1 mg Tablet PO (08:54)
--- NOTE | 2020-02-22 09:43 | PC.NURSE ---
transfer to floor at this time no distress noted
[2020-02-22] MEDS: LORazepam 2 mg Tablet PO ×3 (10:19→22:18)
--- NOTE | 2020-02-22 10:50 | P.PN_ITS ---
Subjective Subjective: Interval history: Actually was sleeping when I arrived to the room. The nurses alerted me that she was doing well, and only required Ativan last night. Upon awakening her she reported she was doing okay. She denied any nausea. There have been no seizures in the hospital. Medications: Reviewed: Yes Vitals/I&O/Wt Last Vital Signs Temp 97.1 F L 02/21/20 13:29 Pulse 84 02/22/20 08:00 Resp 13 02/22/20 08:00 BP 122/82 02/22/20 08:00 Pulse Ox 92 02/22/20 02:00 02/21/20 02/22/20 02/22/20 22:59 06:59 14:59 Intake Total 554 / 554 1000 / 1554 1000 / 1000 Balance 554 / 554 1000 / 1554 1000 / 1000 Weight last 48 hrs Weight 95.254 kg Physical Exam Narrative: EXAM NARRATIVE: General exam no apparent distress Cardiovascular regular in rhythm without murmur Lungs clear Abdomen soft positive bowel sounds Extremities no cyanosis clubbing or edema Neuro no focal deficits Data : 02/22/20 04:54 02/22/20 04:54 A&P Assessment and plan (1) Alcohol withdrawal: Last Ativan dose last night Continue thiamine, folate Continue CIWA protocol Note that her last alcohol beverage was approximately 8 to 12 hours prior to admission and last amphetamine use 2 to 3 days prior to admission With no evidence of seizure, patient will be transferred to the second floor TSH was checked and normal Status: Acute Qualifiers: Complication of substance-induced condition: with unspecified complication Qualified Code(s): F10.239 - Alcohol dependence with withdrawal, unspecified (2) Alcoholism: Discussed abstinence Status: Acute (3) Substance abuse: Discussed abstinence Will offer rehabilitation programs She denies any suicidal or homicidal ideation Hepatitis panel and HIV were checked and negative Status: Acute (4) Seizure: Reported, but hard to confirm. Given an infusion of Keppra in the emergency department I do not think this needs to be continued at this point. Treat active withdrawal and monitor closely. Seizure and fall precautions Status: Acute Additional A&P Information Full code Low risk for DVT Reduce IV fluids. She is taking well p.o. Attestations Medical Necessity Statement*: Needs continued hospitalization for monitoring of withdrawal. Will visit with her this afternoon to determine if any withdrawal symptoms are present. Coding Level of Care Code Acute Plant Cytologist for Chg Fwd Diagnoses Alcohol withdrawal F10.239 Complication of substance-induced condition: with unspecified complication Alcoholism F10.20 Substance abuse F19.10 Seizure R56.9
[2020-02-22] MEDS: nicotine 21 mg Patch 1 PATCH TRANSDERMA (13:18)
[2020-02-22] MEDS: acetaminophen 325 mg Tablet 650 MG PO (19:42)
[2020-02-22] MEDS: sodium chloride 0.9% 1,000 ML 75 ML IV (22:18)
[2020-02-23] VITALS: BP 130/79; PULSE 100; RESP 19; TEMP 36.7; O2SAT 99
[2020-02-23 04:00] VITALS: BP 110/72; PULSE 94; RESP 18; TEMP 36.4; O2SAT 98
[2020-02-23 06:14] LABS: Basophils % 0.3 %; Eosinophils # 0.3 10^3/uL (0.0-0.8); Eosinophils % 3.8 %; Hematocrit 39.4 % (37.0-47.0); Hemoglobin 12.5 g/dL (11.5-15.3); Lymphocytes # 2.5 10^3/uL (0.8-4.8); Lymphocytes % 35.5 %; Mean Corpuscular HGB Conc 31.7 g/dL (30.0-36.0); Mean Corpuscular Volume 88.1 fL (81-99); Mean Platelet Volume 9.6 fL (7.4-10.4); Monocytes # 0.6 10^3/uL (0.2-0.9); Monocytes % 7.8 %; Neutrophils # 3.7 10^3/uL (1.8-7.7); Neutrophils % 52.2 %; Nucleated Red Blood Cells % 0 %; Platelet Count 273 10^3/cmm (130-400); Red Blood Count 4.47 10^6/uL (4.1-5.3); Red Cell Distribution Width 12.9 % (12.1-15.1)
[2020-02-23 06:34] LABS: Alanine Aminotransferase 8 U/L (0-33); Albumin Level 3.8 g/dL (3.5-5.2); Alkaline Phosphatase 72 IU/L (35-105); Anion Gap 13.8 (5-19); Aspartate Amino Transferase 12 U/L (0-32); Blood Urea Nitrogen 7 mg/dL (6-20); Calcium 8.5 mg/dL (8.5-10.5); Carbon Dioxide 25 mmol/L (22-29); Chloride 105 mmol/L (98-107); Globulin 2.3 g/dL (1.3-4.6); Glomerular Filtration Rate 116.6 mL/min (90-130); Glucose 103 mg/dL (65-115); Osmolality Calculated 286 mOsm/kg (285-295); Potassium 3.8 mmol/L (3.5-5.1); Sodium 140 mmol/L (136-145); Total Bilirubin 0.2 mg/dL (0.15-1.2); Total Protein 6.1 g/dL (6.6-8.7)
[2020-02-23 08:00] VITALS: BP 127/87; PULSE 111; RESP 18; TEMP 36.7; O2SAT 98
[2020-02-23] MEDS: thiamine 100 mg Tablet PO (08:32)
[2020-02-23] MEDS: nicotine 21 mg Patch 1 PATCH TRANSDERMA (08:32)
[2020-02-23] MEDS: multivitamin therapeutic Tablet 1 TAB PO (08:32)
[2020-02-23] MEDS: folic acid 1 mg Tablet PO (08:32)
[2020-02-23] MEDS: LORazepam 2 mg Tablet PO (08:44)
[2020-02-23 09:14] VITALS: BP 127/87; PULSE 111; RESP 18; TEMP 36.7; O2SAT 98
--- NOTE | 2020-02-23 09:15 | PC.NURSE ---
During AM shift assessment pt stated, I need to leave. I need to check on my mom. No one has checked on her. Pt had previously informed nurse that her mother is disabled and she is the primary caregiver. This nurse informed pt the Dr would be in to see her soon and would likely be discharging her if she could wait. This nurse notified Dr. Rogers pt was wanting to leave AMA. Dr. Banks said he would see her first when he was finished in ICU. Nurse informed pt of this. Pt proceeded to take IV out, get dressed, and leave the room. Nurse educated pt on s/s of further withdrawal and need for PCP follow up. Nurse was able to get pt to sign AMA paper work and walked pt out to her car. Dr. Rogers notified.
--- NOTE | 2020-02-23 10:25 | P.DS_ITS ---
Discharge Providers Date of Admission: 02/21/20 15:55 Date of Discharge: February 23, 2020 Attending Provider at Admission: Jose Aguilera MD Attending Provider at Discharge: Rob Rogers Diagnoses at Discharge Discharge Diagnosis (1) Alcohol withdrawal: Status: Acute Qualifiers: Complication of substance-induced condition: with unspecified complication Qualified Code(s): F10.239 - Alcohol dependence with withdrawal, unspecified (2) Alcoholism: Status: Acute (3) Substance abuse: Status: Acute (4) Seizure: Status: Acute Reason for Visit Reason for Visit: Reason For Visit: seizure Hospital Course Hospital Course: 29-year-old lady with history of alcohol and substance abuse, was admitted after presenting to emergency department reporting she had had a seizure, initially had gotten a dose of Keppra, and found to be in alcohol withdrawal, for which she was monitored and managed according to [facility] protocol. It appears she had been gradually improving, this morning she had requested to suddenly leave the hospital, and had left before being seen. I see plans were for her to follow-up with [facility], although I am not sure with these arrangements were actually made. For now we will request for an appointment there. Urine culture is growing group B strep, and is seeing reports of dysuria or urinary complaints, and appears it may be a symptomatic bacteriuria. Please follow-up with her in clinic regarding symptoms of withdrawal, options for rehabilitation for alcohol and substance addiction and seizure. Physical Exam Narrative: EXAM NARRATIVE: Patient left before being seen this morning. Discharge Data Data Completed and Pending: Pending at discharge Category Date Time Status Arterial Blood Ga s Full Stat Lab 02/21/20 14:35 Received Labs from last 24 hours 02/23/20 02/23/20 05:46 05:46 WBC 7.0 RBC 4.47 Hgb 12.5 Hct 39.4 MCV 88.1 MCH 28.0 MCHC 31.7 RDW 12.9 Plt Count 273 MPV 9.6 Neut % (Auto) 52.2 Lymph % (Auto) 35.5 [place] % (Auto) 7.8 Eos % (Auto) 3.8 Baso % (Auto) 0.3 Neut # (Auto) 3.7 Lymph # (Auto) 2.5 [place] # (Auto) 0.6 Eos # (Auto) 0.3 Baso # (Auto) 0.0 Nucleated RBC % (a uto) 0 Nucleated RBCs # 0.0 Sodium 140 Potassium 3.8 Chloride 105 Carbon Dioxide 25 Anion Gap 13.8 BUN 7 Creatinine 0.6 GFR Calculation 116.6 Glucose 103 Calculated Osmolal ity 286 Calcium 8.5 Total Bilirubin 0.2 AST 12 ALT 8 Alkaline Phosphata se 72 Total Protein 6.1 L Albumin 3.8 Globulin 2.3 Vitals: Last Vital Signs Temp 98.0 F 02/23/20 09:14 Pulse 111 H 02/23/20 09:14 Resp 18 02/23/20 09:14 BP 127/87 02/23/20 09:14 Pulse Ox 98 02/23/20 09:14 Discharge Plan Discharge Patient Disposition: Left Against Medical Advice Prescriptions: No Action Multiple Vitamins Tablet 1 tab PO DAILY RF: 0 olanzapine 10 mg Tablet 10 mg PO DAILY RF: 0 ibuprofen 200 mg Tablet 400 mg PO PRN RF: 0 chlordiazepoxide HCl 10 mg capsule 10 mg PO Q8H PRN (Reason: alcohol withdrawal) Qty: 14 RF: 0 Discharge Orders: Discharge Order (Routine); Ordered 02/23/20 Ordered By: Rob Rogers Referrals: Priscilla Rivas MD [Hospitalist] - 4-7 days (At [facility]) Activity Restrictions/Additional Instructions: No additional instructions could be given as pt left without being seen. 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
[2020-02-27 18:22] LABS: ABG PCO2 40.4 mmHg (35-45); ABG PH Result 7.45 (7.35-7.45); Alveolar-Arterial Oxygen Gradi 21.8 mmHg (5-10); Arterial Blood Gas Hematocrit 42.6 % (37-47); Base Excess ABG 3.6 mmol/L (-2.0-2.0); Blood Gas Allen Test Pos; Blood Gas Sample Site Brachial, right; Blood Gas Sample Type Arterial; Carboxyhemoglobin 6.5 %THgb (0.4-20.1); HGB O2 Sat 90.4 % (95-100); Ionized Calcium Level - ABG 1.2 mmol/L (1.1-1.4); Methemoglobin 0.4 % (0.4-1.5); Oxygen Device ROOM AIR; Oxygen Saturation ABG 97.1; Potassium Level - ABG 3.8 mmol/L (3.5-5.0); Total Hemoglobin 13.9 g/dL (12-16)
== END 2020-02-23 09:00 | disposition left against medical advice (07) | DRG 894 ==
LOC: ER 13:41 → ICU 16:50 → MEDSURG 02-22 09:51
PROVIDERS: Family Medicine; Admitting Provider Internal Medicine; Visit Provider Internal Medicine
DX: F10.229 Alcohol dependence with intoxication, unspecified (principal); F10.239 Alcohol dependence with withdrawal, unspecified; F19.10 Other psychoactive substance abuse, uncomplicated; Z53.29 Procedure and treatment not carried out because of patient's decision for other reasons; R56.9 Unspecified convulsions; F17.210 Nicotine dependence, cigarettes, uncomplicated
CPT/HCPCS: 12345; 36415; 36600; 80051; 80053; 80074; 80306; 80307; 81001; 81025; 82550; 82810; 83605; 83690; 83735; 83986; 84443; 85025; 85610; 85730; 87806; 96375; 99283; J1953; J2060; J3411; J7030

== ENCOUNTER 2020-04-15 21:13 | Emergency (ER) | payer MEDICAID, SELFPAY ==
[2020-04-15 21:15] VITALS: BP 143/101; PULSE 133; RESP 24; TEMP 36.8; O2SAT 97; BMI 35.2
--- NOTE | 2020-04-15 21:18 | XRR_ITS ---
PROCEDURE INFORMATION: Exam: XR Chest, 1 View Exam date and time: 04/15/2020 9:55 PM Age: 30 years old Clinical indication: Cough and dyspnea; Smoker's cough; Additional info: Dyspnea/cough TECHNIQUE: Imaging protocol: XR of the chest Views: 1 view. COMPARISON: No relevant prior studies available. FINDINGS: Lungs: Unremarkable. No consolidation. Pleural space: Unremarkable. No pleural effusion. No pneumothorax. Heart/Mediastinum: Unremarkable. No cardiomegaly. Bones/joints: Unremarkable. XR/XR chest 1V portable [id number] IMPRESSION: No acute findings.
--- NOTE | 2020-04-15 21:25 | PC.NURSE ---
EKG done at 2121 and shown to ER doctor
--- NOTE | 2020-04-15 21:29 | ECG_ITS ---
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 Measurements Intervals Gans Rate: 127 P: 57 MO: 163 QRS: 62 QRSD: 83 T: 48 QT: 308 QTc: 449 Interpretive Statements SINUS TACHYCARDIA, early repolarization in the inferolateral leads LOW QRS VOLTAGE IN PRECORDIAL LEADS [QRS DEFLECTION < 1.0 mV IN CHEST LEADS] ABNORMAL RHYTHM ECG No previous ECG available for comparison Electronically Signed On 04-16-2020 19:04:04 CDT by Anjali Busby M.D. [id number] f
[2020-04-15 21:35] VITALS: PULSE 124; RESP 20; O2SAT 96
[2020-04-15 21:40] LABS: Basophils # 0.1 10^3/uL (0.0-0.1); Basophils % 0.5 %; Eosinophils # 0.3 10^3/uL (0.0-0.8); Eosinophils % 2.4 %; Hematocrit 42.4 % (37.0-47.0); Hemoglobin 13.8 g/dL (11.5-15.3); Lymphocytes # 3.4 10^3/uL (0.8-4.8); Lymphocytes % 31.5 %; Mean Corpuscular HGB Conc 32.5 g/dL (30.0-36.0); Mean Corpuscular Hemoglobin 28.8 pg (28.0-34.0); Mean Corpuscular Volume 88.5 fL (81-99); Mean Platelet Volume 9.5 fL (7.4-10.4); Monocytes # 0.8 10^3/uL (0.2-0.9); Neutrophils # 6.21 10^3/uL (1.8-7.7); Neutrophils % 58.1 %; Nucleated Red Blood Cells % 0 %; Platelet Count 296 10^3/cmm (130-400); Red Blood Count 4.79 10^6/uL (4.1-5.3); Red Cell Distribution Width 14.5 % (12.1-15.1); White Blood Count 10.7 10^3/uL (4.0-10.0)
[2020-04-15 21:57] LABS: Lactate (Lactic Acid level) 2.6 mmol/L (0.5-2.2)
[2020-04-15 21:59] LABS: Alanine Aminotransferase 31 U/L (0-33); Albumin Level 4.3 g/dL (3.5-5.2); Alcohol Level 194 mg/dL (0-10); Alkaline Phosphatase 90 IU/L (35-105); Anion Gap 17.2 (5-19); Aspartate Amino Transferase 32 U/L (0-32); Blood Urea Nitrogen 10 mg/dL (6-20); Carbon Dioxide 23 mmol/L (22-29); Chloride 100 mmol/L (98-107); Creatine Phosphokinase 66 U/L (26-192); Globulin 2.9 g/dL (1.3-4.6); Glomerular Filtration Rate 115.9 mL/min (90-130); Glucose 100 mg/dL (65-115); Lipase 16 U/L (13-60); Osmolality Calculated 278 mOsm/kg (285-295); Potassium 4.2 mmol/L (3.5-5.1); Sodium 136 mmol/L (136-145); Total Bilirubin 0.2 mg/dL (0.15-1.2); Total Protein 7.2 g/dL (6.6-8.7)
[2020-04-15] MEDS: sodium chloride 0.9% 1,000 ML 999 ML IV (21:59)
[2020-04-15] MEDS: LORazepam 2 mg/mL INJ 1 mL IVP (21:59)
[2020-04-15 22:00] LABS: Add Urine Microscopic? NO
[2020-04-15 22:01] LABS: Acetaminophen < 5.0 ug/mL (10-30); Salicylate < 0.3 mg/dL (3-10)
[2020-04-15 22:14] LABS: Bilirubin Urine Neg (NEGATIVE); Blood Urine Neg (Negative); Glucose Urine UA Norm (Normal); HCG Qualitative Urine. Negative (Negative); Ketones Urine Negative (Negative); Leukocyte Esterase Urine Negative (Negative); Nitrate Urine Negative (Negative); Protein Urine Neg (Negative); Urine Appearance Clear (CLEAR); Urine Color Yellow (Yellow); Urobilinogen Urine Norm (Negative); pH Urine 6.5 (5-7)
[2020-04-15 22:23] LABS: Amphetamines Screen Urine Negative (Negative); Barbiturates Screen Urine Negative (Negative); Benzodiazepines Screen Urine Negative (Negative); Cocaine Screen Urine Negative (Negative); Opiate Screen Urine Negative (Negative); PCP Screen Urine Negative (Negative); THC Screen Urine Negative (Negative)
[2020-04-15 22:50] VITALS: BP 127/91
--- NOTE | 2020-04-15 22:51 | W.ED.SEIZURE ---
HPI - Seizure General: Chief Complaint: Seizure Stated Complaint: seizure like activity/ alcoholism Time Seen by Provider: 04/15/20 21:14 History of Present Illness: HPI Narrative: 30-year-old female comes in she is acutely intoxicated she is reporting that she had a seizure because she drank less today than she usually drinks. EMS reported she was somnolent when they picked her up but they did not actually witness the seizure. She reports having had seizures several times before. She chronically drinks alcohol and drinks up to 3/5 of vodka per day. MD complaint: possible seizure Description of Episode: loss of consciousness Trauma: No Seizure History: Yes Place: Home Possible Precipitating Event: alcohol withdrawal Associated symptoms: Reports no associated symptoms; Deny chest pain, chills, fever(s) or malaise Treatments prior to arrival: none Review of Systems Const: Denies: fever(s), chills, body aches, change in appetite, fatigue or malaise ENMT: Denies: throat pain, ear or mastoid pain, nasal discharge or nasal congestion Card: Denies: chest pain, edema, dyspnea on exertion or orthopnea Resp: Denies: dyspnea, productive cough or non-productive cough GI: Denies: abdominal pain, nausea, vomiting, hematemesis, coffee ground emesis, diarrhea, constipation, bloating, hematochezia or melena : Denies: flank pain, difficulty voiding, dysuria, urinary frequency or urinary urgency Skin/Breast: Denies: rash or pruritus PFSH ED PFSH: Medical History Alcohol withdrawal Alcoholism Hx LEEP (loop electrosurgical excision procedure), cervix, Substance abuse Surgical History History of bladder surgery Hx of tubal ligation Family History Other Cancer Social History Smoking and tobacco status: current every day smoker Alcohol intake: current Alcohol intake frequency: 3 or more drinks per day Alcohol type: hard liquor Desire information about alcohol rehabilitation?: Yes Counseling given: Yes Female Reproductive History: Date of last menstrual period: 02/07/20 Physical Exam Const: COMMON NORMALS: no acute distress GENERAL APPEARANCE: cooperative and comfortable ORIENTATION/CONSCIOUSNESS: Yes awake, Yes oriented to person, Yes oriented to place and Yes oriented to time HENMT: COMMON NORMALS: atraumatic and hearing grossly normal bilaterally HEAD & SCALP: atraumatic Eye: COMMON NORMALS: Equal, round and reactive pupils present, EOMs intact bilaterally, conjunctivae normal and no scleral icterus CONJUNCTIVA: Yes conjunctivae normal PUPIL: Yes Equal, round and reactive pupils present Neck/C-Spine: COMMON NORMALS: full ROM, no lymphadenopathy, supple and no JVD Lymph: LYMPHATIC: no lymphadenopathy noted and no lymphedema noted Resp: COMMON NORMALS: normal respiratory effort, No retractions, No use of accessory muscles and clear to auscultation bilaterally AUSCULTATION: clear to auscultation bilaterally Cardio: COMMON NORMALS: no JVD, regular rate, regular rhythm and No murmurs present (Cardio) RATE: regular rate RHYTHM: regular rhythm GI: COMMON NORMALS: Soft to palpation and No hepatosplenomegaly present AUSCULTATION: Yes normoactive bowel sounds PALPATION: Yes Soft to palpation, No Tenderness to palpation present (GI), No Guarding due to palpation present (GI) and Yes No hepatosplenomegaly present Extremity: COMMON NORMALS: normal to inspection, capillary refill normal, no clubbing, cyanosis or edema, no calf tenderness and no pedal edema Neuro: SENSORIUM/ORIENTATION: Yes oriented to person, Yes oriented to place and Yes oriented to time Skin: COMMON NORMALS: no rashes or lesions noted GENERAL SKIN EXAM: no rashes or lesions noted Course Vital Signs: Vital signs: Vital Signs Temperature 98.3 F 04/15/20 21:15 Pulse Rate 124 H 04/15/20 21:35 Respiratory Rate 20 H 04/15/20 21:35 Blood Pressure 143/101 04/15/20 21:15 Pulse Oximetry 96 04/15/20 21:35 MDM - Seizure MDM Narrative: Medical decision making narrative: Patient is still acutely intoxicated. I do not believe she has a seizure CPK is normal blood alcohol is significantly elevated she is awake and alert and oriented ambulatory when I discussed this with her she is adamant that she be admitted for alcohol withdrawal pointed out to her that she is still actually acutely intoxicated. She maintains that the blood alcohol at this current level does not reflect intoxication for her. I discussed with her we will probably go ahead and discharge her home and recommend that she follow-up in outpatient services for alcohol abstinence. She wishes to leave immediately since she is going to be discharged. We will go ahead and discharge her home she is previously been prescribed chlordiazepoxide for alcohol withdrawal. If she has any further issues she can return to be reevaluated. Lab Data: Attestation: I reviewed the patient's lab results. Labs: Lab Results 04/15/20 04/15/20 04/15/20 Range/Units 21:35 21:35 21:35 WBC 10.7 H (4.0-10.0) 10^3/ uL RBC 4.79 (4.1-5.3) 10^6/u L Hgb 13.8 (11.5-15.3) g/dL Hct 42.4 (37.0-47.0) % MCV 88.5 (81-99) fL MCH 28.8 (28.0-34.0) pg MCHC 32.5 (30.0-36.0) g/dL RDW 14.5 (12.1-15.1) % Plt Count 296 (130-400) 10^3/c mm MPV 9.5 (7.4-10.4) fL Neut % (Auto) 58.1 % Lymph % (Auto) 31.5 % [place] % (Auto) 7.0 % Eos % (Auto) 2.4 % Baso % (Auto) 0.5 % Neut # (Auto) 6.21 (1.8-7.7) 10^3/u L Lymph # (Auto) 3.4 (0.8-4.8) 10^3/u L [place] # (Auto) 0.8 (0.2-0.9) 10^3/u L Eos # (Auto) 0.3 (0.0-0.8) 10^3/u L Baso # (Auto) 0.1 (0.0-0.1) 10^3/u L Nucleated RBC % (a uto) 0 % Nucleated RBCs # 0.0 /100WBC Sodium 136 (136-145) mmol/L Potassium 4.2 (3.5-5.1) mmol/L Chloride 100 (98-107) mmol/L Carbon Dioxide 23 (22-29) mmol/L Anion Gap 17.2 (5-19) BUN 10 (6-20) mg/dL Creatinine 0.6 (0.5-0.9) mg/dL GFR Calculation 115.9 (90-130) mL/min Glucose 100 (65-115) mg/dL Calculated Osmolal ity 278 L (285-295) mOsm/k g Lactate 2.6 H (0.5-2.2) mmol/L Calcium 9.0 (8.5-10.5) mg/dL Total Bilirubin 0.2 (0.15-1.2) mg/dL AST 32 (0-32) U/L ALT 31 (0-33) U/L Alkaline Phosphata se 90 (35-105) IU/L Creatine Kinase 66 (26-192) U/L Total Protein 7.2 (6.6-8.7) g/dL Albumin 4.3 (3.5-5.2) g/dL Globulin 2.9 (1.3-4.6) g/dL Lipase 16 (13-60) U/L HCG, Qual (Negative) Urine Color (Yellow) Urine Appearance (CLEAR) Urine pH (5-7) Ur Specific Gravit y (1.005-1.030) Urine Protein (Negative) Urine Glucose (UA) (Normal) Urine Ketones (Negative) Urine Blood (Negative) Urine Nitrate (Negative) Urine Bilirubin (NEGATIVE) Urine Urobilinogen (Negative) mg/dL Ur Leukocyte Talia ase (Negative) Salicylates < 0.3 L (3-10) mg/dL Urine Opiates Scre en (Negative) ng/mL Acetaminophen < 5.0 L (10-30) ug/mL Ur Barbiturates Sc reen (Negative) ng/mL Ur Phencyclidine S crn (Negative) ng/mL Ur Amphetamines Sc reen (Negative) ng/mL U Benzodiazepines Scrn (Negative) ng/mL Urine Cocaine Scre en (Negative) ng/mL U Marijuana (THC) Screen (Negative) ng/mL Ethyl Alcohol 194 H (0-10) mg/dL 04/15/20 04/15/20 04/15/20 Range/Units 21:42 21:42 21:42 WBC (4.0-10.0) 10^3/ uL RBC (4.1-5.3) 10^6/u L Hgb (11.5-15.3) g/dL Hct (37.0-47.0) % MCV (81-99) fL MCH (28.0-34.0) pg MCHC (30.0-36.0) g/dL RDW (12.1-15.1) % Plt Count (130-400) 10^3/c mm MPV (7.4-10.4) fL Neut % (Auto) % Lymph % (Auto) % [place] % (Auto) % Eos % (Auto) % Baso % (Auto) % Neut # (Auto) (1.8-7.7) 10^3/u L Lymph # (Auto) (0.8-4.8) 10^3/u L [place] # (Auto) (0.2-0.9) 10^3/u L Eos # (Auto) (0.0-0.8) 10^3/u L Baso # (Auto) (0.0-0.1) 10^3/u L Nucleated RBC % (a uto) % Nucleated RBCs # /100WBC Sodium (136-145) mmol/L Potassium (3.5-5.1) mmol/L Chloride (98-107) mmol/L Carbon Dioxide (22-29) mmol/L Anion Gap (5-19) BUN (6-20) mg/dL Creatinine (0.5-0.9) mg/dL GFR Calculation (90-130) mL/min Glucose (65-115) mg/dL Calculated Osmolal ity (285-295) mOsm/k g Lactate (0.5-2.2) mmol/L Calcium (8.5-10.5) mg/dL Total Bilirubin (0.15-1.2) mg/dL AST (0-32) U/L ALT (0-33) U/L Alkaline Phosphata se (35-105) IU/L Creatine Kinase (26-192) U/L Total Protein (6.6-8.7) g/dL Albumin (3.5-5.2) g/dL Globulin (1.3-4.6) g/dL Lipase (13-60) U/L HCG, Qual Negative (Negative) Urine Color Yellow (Yellow) Urine Appearance Clear (CLEAR) Urine pH 6.5 (5-7) Ur Specific Gravit y 1.010 (1.005-1.030) Urine Protein Neg (Negative) Urine Glucose (UA) Norm (Normal) Urine Ketones Negative (Negative) Urine Blood Neg (Negative) Urine Nitrate Negative (Negative) Urine Bilirubin Neg (NEGATIVE) Urine Urobilinogen Norm (Negative) mg/dL Ur Leukocyte Talia ase Negative (Negative) Salicylates (3-10) mg/dL Urine Opiates Scre en Negative (Negative) ng/mL Acetaminophen (10-30) ug/mL Ur Barbiturates Sc reen Negative (Negative) ng/mL Ur Phencyclidine S crn Negative (Negative) ng/mL Ur Amphetamines Sc reen Negative (Negative) ng/mL U Benzodiazepines Scrn Negative (Negative) ng/mL Urine Cocaine Scre en Negative (Negative) ng/mL U Marijuana (THC) Screen Negative (Negative) ng/mL Ethyl Alcohol (0-10) mg/dL Discharge Plan Discharge Patient Disposition: Home, Self-Care Clinical Impression: Acute alcohol intoxication, Alcoholism, chronic Condition: Stable Prescriptions: No Action Multiple Vitamins Tablet 1 tab PO DAILY RF: 0 olanzapine 10 mg Tablet 10 mg PO DAILY RF: 0 ibuprofen 200 mg Tablet 400 mg PO PRN RF: 0 chlordiazepoxide HCl 10 mg capsule 10 mg PO Q8H PRN (Reason: alcohol withdrawal) Qty: 14 RF: 0 Discharge Orders: Discharge Order (Routine); Ordered 04/15/20 Ordered By: Phil Castro Discharge Diet: Usual diet Discharge Activity: Increase activity as tolerated Activity Restrictions/Additional Instructions: Recommend a pressure outpatient therapy for alcohol abstinence such as [facility] or similar facility. 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
[2020-04-15 22:53] VITALS: RESP 20
== END 2020-04-15 22:55 | disposition home or self-care (01) ==
PROVIDERS: Emergency Provider Family Medicine
DX: F10.229 Alcohol dependence with intoxication, unspecified (principal); Y90.6 Blood alcohol level of 120-199 mg/100 ml; F17.210 Nicotine dependence, cigarettes, uncomplicated
CPT/HCPCS: 12345; 71045; 80053; 80306; 80307; 81003; 81025; 82550; 83605; 83690; 85025; 93005; 96361; 96374; 99283; 99284; J2060; J7030